=== PATIENT | male | born 1945 | race Caucasian/White ===

== ENCOUNTER 2018-06-23 14:20 | Outpatient (REF) | payer OTHER, SELFPAY ==
[2018-06-23 22:02] LABS: BUN 18 mg/dL (7-18); CREATININE 1.52 mg/dL (0.70-1.30); Calcium 8.9 mg/dL (8.5-10.1); Chloride 102 mmol/L (98-107); Estimated GFR 45.05 (mL/min/1.73m2); Glucose 222 mg/dL (70-100); Sodium 140 mmol/L (136-145)
== END 2018-06-23 14:21 ==
LOC: NCHCN 14:20
PROVIDERS: PCP Internal Medicine; Visit Provider Internal Medicine
DX: E11.9 Type 2 diabetes mellitus without complications (principal)
CPT/HCPCS: 80048

== ENCOUNTER 2018-12-29 13:27 | Outpatient (REF) | payer OTHER, SELFPAY ==
[2018-12-29 21:17] LABS: Anion Gap 8.9 mmol/L (3-11); BUN 26 mg/dL (7-18); CO2 29.1 mmol/L (21.0-32.0); CREATININE 1.67 mg/dL (0.70-1.30); Calcium 9.6 mg/dL (8.5-10.1); Chloride 100 mmol/L (98-107); Estimated GFR 40.42 (mL/min/1.73m2); Glucose 216 mg/dL (70-100); Potassium 4.1 mmol/L (3.5-5.1); Sodium 138 mmol/L (136-145)
== END 2018-12-29 13:47 ==
LOC: NCHCN 13:27
PROVIDERS: PCP Internal Medicine; Visit Provider Internal Medicine
DX: I10 Essential (primary) hypertension (principal); K52.9 Noninfective gastroenteritis and colitis, unspecified
CPT/HCPCS: 80048